=== PATIENT | female | born 1990 | race Caucasian/White ===

== ENCOUNTER 2023-10-23 14:06 | Emergency (ER) | payer OTHER ==
[~2023-10-23] VITALS: Ht 170.2 cm; Wt 100.0 kg
[2023-10-23 14:47] LABS: URINE HCG NEGATIVE (NEG)
[2023-10-23] MEDS: HYDROmorphone 1 mg/ml syringe IV ONE ×2 (14:47→15:57)
[2023-10-23] MEDS: ondansetron/PF 4mg/2ml inj IV ONE (14:48)
[2023-10-23 14:55] LABS: BILIRUBIN,URINE NEGATIVE (Neg); CLARITY,URINE CLOUDY (Clear); COLOR,URINE YELLOW (Yellow); GLUCOSE, URINE NEGATIVE (Neg); KETONES,URINE NEGATIVE (Neg); LEUKOCYTE ESTERASE ,URINE TRACE (Neg); NITRITES, URINE NEGATIVE (Neg); OCCULT BLOOD,URINE NEGATIVE (Neg); PH,URINE 5.5 (4.8-8.0); PROTEIN,URINE NEGATIVE (Neg); UROBILINOGEN,URINE 0.2 E.U/dL (0.2-1.0)
[2023-10-23 14:57] LABS: UA COLLECTION TYPE CLN CATCH MIDSTREAM
[2023-10-23 15:14] LABS: SQUAMOUS EPITHELIAL CELL,UR MANY /LPF (FEW)
[2023-10-23 15:15] LABS: TRANSITIONAL EPI CELLS,URINE FEW /HPF
[2023-10-23 15:16] LABS: MUCUS STRANDS MANY /LPF (Neg)
[2023-10-23 15:19] LABS: RBC,URINE 0-2 /HPF (0-2)
[2023-10-23 15:21] LABS: BACTERIA,URINE 1+ /HPF (Neg)
[2023-10-23 15:26] LABS: ALBUMIN 3.6 G/DL (3.4-5.0); ANION GAP 9 (8-16); BLOOD UREA NITROGEN 12 MG/DL (7-18); BUN/CREATININE RATIO 16.2 (10.0-20.0); CALCIUM 7.9 MG/DL (8.5-10.1); CHLORIDE 107 MMOL/L (99-107); CREATININE 0.74 MG/DL (0.40-0.90); GLUCOSE 106 MG/DL (70-104); LIPASE 21 U/L (16-77); SODIUM 139 MMOL/L (135-145); TOTAL CARBON DIOXIDE 23.1 MMOL/L (24-32); eCRCL 107 ML/MIN; eGFR > 90 ML/MIN
[2023-10-23 15:27] LABS: BASOPHILS # (AUTO) 0.1 X10'3 (0-0.2); BASOPHILS % (AUTO) 0.8 % (0-1); EOSINOPHILS % (AUTO) 0.7 % (0-6); HEMATOCRIT 35.4 % (35.0-45.0); HEMOGLOBIN 11.2 g/dl (12.0-16.0); LYMPHOCYTES # (AUTO) 2.3 X10'3 (1.1-4.8); LYMPHOCYTES % (AUTO) 31.7 % (21-51); MEAN CORPUSCULAR HEMOGLOBIN 22.6 PG (27.0-31.0); MEAN CORPUSCULAR HGB CONC 31.8 g/dL (33.0-36.5); MEAN CORPUSCULAR VOLUME 71.3 FL (78-98); MEAN PLATELET VOLUME 8.1 FL (7.4-10.4); MONOCYTES # (AUTO) 0.5 X10'3 (0-0.9); NEUTROPHILS # (AUTO) 4.4 X10'3 (1.8-7.7); NEUTROPHILS % (AUTO) 59.8 % (42-75); PLATELET COUNT 299 X10'3 (140-440); RED BLOOD COUNT 4.96 X10'6 (4.20-5.60); RED CELL DISTRIBUTION WIDTH 18.5 % (11.5-14.5); WHITE BLOOD COUNT 7.4 X10'3 (4.5-11.0)
[2023-10-23] MEDS: phenazopyridine 100mg tablet PO ONE (15:56)
[2023-10-23] MEDS ORDERED: ONDA8TAB13 PO (16:38)
[2023-10-23] MEDS ORDERED: PHEN-786 PO (16:38)
[2023-10-23] MEDS ORDERED: FLO0.4C PO (16:38)
[2023-10-23] MEDS ORDERED: HYDR-3973 PO (16:38)
[2023-10-23 16:52] VITALS: BP 118/66; PULSE 59; RESP 16; TEMP 98; O2SAT 95
== END 2023-10-23 16:56 | disposition home or self-care (01) ==
LOC: ER 14:08
DX: N20.0 Calculus of kidney (principal); Z91.040 Latex allergy status
CPT/HCPCS: 36415; 74176; 80048; 81001; 81025; 83690; 85025; 96374; 96375; 96376; 99285; J1170; J2405